=== PATIENT | male | born 2000 | race Hispanic/Latino ===

== ENCOUNTER 2021-05-06 03:39 | Emergency (ER) | payer SELFPAY ==
[~2021-05-06] VITALS: Ht 182.9 cm; Wt 116.6 kg
[2021-05-06 04:41] VITALS: BP 151/89
== END 2021-05-06 04:41 | disposition home or self-care (01) ==
LOC: FSED 04:15
DX: H60.92 Unspecified otitis externa, left ear (principal)
CPT/HCPCS: 99282